=== PATIENT | male | born 1945 ===

== ENCOUNTER 2020-10-14 07:17 | Day surgery (SDC) | payer MEDICARE, BC ==
[~2020-10-14 07:17] MED LIST: Benzocaine 20% Topical Spray UD ONE; Dextrose 5%-0.45% NaCl 1,000 ML IV SCH; Midazolam 1 MG/ML 2 ML SDV ONE
[2020-10-14] MEDS ORDERED: Midazolam 1 MG/ML 2 ML SDV IV ONE ×7 (07:18→08:39)
[2020-10-14] MEDS ORDERED: Dextrose 5%-0.45% NaCl 1,000 ML IV SCH (07:30)
[2020-10-14] MEDS ORDERED: Benzocaine 20% Topical Spray UD MUCMEM ONE (08:39)
--- NOTE | 2020-10-14 11:14 | OR ---
DATE: 10/14/2020 PREOPERATIVE DIAGNOSIS: Gastroesophageal reflux disease. POSTOPERATIVE DIAGNOSIS: Gastroesophageal reflux disease. PROCEDURE: Esophagogastroduodenoscopy. ANESTHESIA: Conscious sedation with IV Versed. SPECIMEN: None. OPERATIVE FINDINGS: Large hiatal hernia with patulous lower esophageal sphincter. RECOMMENDATION: Symptomatic de la garza, this patient may improve with consideration of surgical repair for a Usman fundoplication. I am going to discuss this option with the patient. He did not have significant distal esophagitis. There are no masses, ulcers, or bleeding sites. INDICATION FOR PROCEDURE: This 75-year-old male referred for GERD symptoms. DESCRIPTION OF PROCEDURE: After adequate preparation, a gastroscope was inserted into the esophagus. This was passed down to the distal esophagus. It showed a moderate-sized hiatal hernia, but no evidence of reflux esophagitis. No strictures or masses at the EG junction were noted. The scope was advanced into the stomach. Both forward and retroflexed views were done. Photographs of the hiatal hernia from a retrograde fashion were taken. The scope was advanced then through the pylorus into the duodenum, which was also normal. Air was suctioned from the stomach and the scope removed. [facility] /[id number]
== END 2020-10-14 10:08 | disposition home or self-care (01) ==
LOC: DL.ENDO 07:17
PROVIDERS: ATTEND Surgery
DX: K21.9 Gastro-esophageal reflux disease without esophagitis (principal); K22.4 Dyskinesia of esophagus; K44.9 Diaphragmatic hernia without obstruction or gangrene; Z01.812 Encounter for preprocedural laboratory examination; Z20.822 Contact with and (suspected) exposure to COVID-19; Z88.5 Allergy status to narcotic agent; Z79.899 Other long term (current) drug therapy
CPT/HCPCS: 43235; A9270; J2250; J7042; U0002